=== PATIENT | female | born 1960 | race Two or more races ===

== ENCOUNTER 2021-09-23 14:06 | Emergency (ER) | payer SELFPAY ==
[~2021-09-23] VITALS: Ht 157.5 cm; Wt 104.3 kg
[2021-09-23 14:37] VITALS: BP 129/67
[2021-09-23] MEDS ORDERED: diphenhydrAMINE HCL 50 MG CAPSULE PO ONE (15:00)
[2021-09-23] MEDS ORDERED: FAMOTIDINE (20 MG) 20 MG TABLET PO ONE (15:00)
[2021-09-23] MEDS ORDERED: predniSONE 10 MG TABLET PO ONE (15:00)
[2021-09-23] MEDS ORDERED: diphenhydrAMINE HCL 50 MG CAPSULE ONE (15:12)
[2021-09-23] MEDS ORDERED: FAMOTIDINE (20 MG) 20 MG TABLET ONE (15:12)
[2021-09-23] MEDS ORDERED: predniSONE 20 MG TABLET ONE (15:12)
[2021-09-23] MEDS ORDERED: PRED50TA PO (15:49)
--- NOTE | 2021-09-23 16:49 | NUR ---
Patient discharged to home in stable condition. Written and verbal after care instructions given. Patient verbalizes understanding of instruction.
--- NOTE | 2021-09-23 17:42 | NUR ---
[facility] ERROR, CANNOT DEPART
== END 2021-09-23 16:49 | disposition home or self-care (01) ==
LOC: ER 14:10
DX: L29.8 Other pruritus (principal); T37.0X5A Adverse effect of sulfonamides, initial encounter; Z88.2 Allergy status to sulfonamides; Z79.52 Long term (current) use of systemic steroids; Y92.89 Other specified places as the place of occurrence of the external cause
CPT/HCPCS: 99284; J7512; Q0163